=== PATIENT | female | born 2000 | race Caucasian/White ===

== ENCOUNTER 2025-05-26 22:25 | Emergency (ER) | payer SELFPAY ==
[~2025-05-26] VITALS: Ht 165.1 cm; Wt 113.0 kg
[2025-05-26 22:44] VITALS: BP 146/84; PULSE 99; RESP 18; TEMP 37.1; O2SAT 99
== END 2025-05-27 04:53 | disposition left against medical advice (07) ==
LOC: ER 22:25
DX: R51.9 Headache, unspecified (principal)
CPT/HCPCS: 99281